=== PATIENT | male | born 1955 | race Caucasian/White ===

== ENCOUNTER 2020-03-19 22:50 | Emergency (ER) | payer OTHER, MEDICAID ==
[~2020-03-19] VITALS: Ht 188 cm; Wt 115.7 kg
[2020-03-19 22:55] VITALS: BP_SYST 124
[2020-03-19] MEDS ORDERED: BACITRACIN 1 GM OINT TP ONE (23:15)
[2020-03-19] MEDS ORDERED: DIPH-TET-PERTUS Vaccine 0.5 ML VIAL (ADACEL) I.M. ONE (23:15)
[2020-03-19] MEDS ORDERED: LIDOCAINE/EPI 1% 1:100000 20 ML VIAL INJ ONE (23:15)
== END 2020-03-19 23:39 | disposition home or self-care (01) ==
LOC: SED 22:50
DX: I83.892 Varicose veins of left lower extremity with other complications (principal)
CPT/HCPCS: 90715; 99283